=== PATIENT | female | born 1975 | race American Indian/Alaskan Native ===

== ENCOUNTER 2017-03-26 10:47 | Outpatient (CLI) | payer MEDICARE ==
--- NOTE | 2017-03-26 12:53 | XRay Report ---
XRAY RIGHT HIP TWO VIEWS: 03/26/17 10:47:00 CLINICAL: Right hip pain. FINDINGS: Motion and large body habitus contribute to image blur. No fracture or dislocation. Moderate bilateral hip osteoarthritis with narrowing of joint space and superior acetabular eburnation. The pelvic bones are intact. Normal soft tissues. IMPRESSION: Osteoarthritis.
== END 2017-03-26 10:48 | disposition home or self-care (01) ==
LOC: SPVIMAG 10:47
PROVIDERS: ATTEND Orthopaedic Surgery Sports Medicine
DX: M16.0 Bilateral primary osteoarthritis of hip (principal)